=== PATIENT | female | born 2005 | race Asian ===

== ENCOUNTER 2023-11-28 09:42 | Outpatient (REF) | payer BC, SELFPAY | END 2023-11-28 09:43 | disposition home or self-care (01) | LOC: HO.UMASIMG 09:42 | PROVIDERS: Visit Provider Nurse Practitioner Women's Health | DX: Z13.89 Encounter for screening for other disorder (principal) ==

== ENCOUNTER 2023-12-05 10:12 | Outpatient (REF) | payer BC, SELFPAY ==
--- NOTE | ~2023-12-05 | US_ITS ---
EXAMINATION: US PELVIC COMPLETE CLINICAL INFORMATION: Irregular bleeding, last menstrual period approximately 2-1/2 weeks ago. COMPARISON: None available. TECHNIQUE: Transabdominal ultrasound images only were obtained. Limited visualization due to bowel gas. Patient declined transvaginal exam. Transvaginal ultrasound imaging is recommended for better visualization if patient agrees. FINDINGS: The uterus measures 8.6 x 3.4 x 5.6 cm and is anteverted. No discrete fibroids are appreciated. Endometrial thickness is 12 mm where imaged, although visualization is limited. No significant free fluid. Right ovary measures 2.3 x 1.3 x 2.3 cm, volume 3.4 mL and is grossly unremarkable. Left ovary measures 3.4 x 2.4 x 3.6 cm, volume 14.1 mL. Left ovarian 1.9 cm cyst appears simple and is likely physiologic. There is no specific indication for additional imaging at this time. US/US pelvic complete IMPRESSION: Endometrial thickness is 12 mm where imaged, although visualization is limited. No significant free fluid. Limited visualization due to bowel gas. Patient declined transvaginal exam. Transvaginal ultrasound imaging is recommended for better visualization if patient agrees.
== END 2023-12-05 10:13 | disposition home or self-care (01) ==
LOC: HO.UMASIMG 10:12
PROVIDERS: Visit Provider Nurse Practitioner Women's Health
DX: N92.6 Irregular menstruation, unspecified (principal)
CPT/HCPCS: 76856